=== PATIENT | male | born 1985 | race Caucasian/White ===

== ENCOUNTER 2025-05-26 11:18 | Emergency (ER) | payer OTHER, SELFPAY ==
[2025-05-26 11:21] VITALS: BP 118/69
[2025-05-26 12:07] LABS: Hematocrit 41.0 % (39.0-52.0); Hemoglobin 14.5 g/dL (13.0-18.0); Mean Corp Hgb Conc. 35.4 g/dL (33.0-37.0); Mean Corpuscular Volume 86.7 fL (80.0-94.0); Nucleated Red Blood Cells % 0 % (-); Platelet Count 271 10^3/uL (130-400); Red Cell Dist. Width 12.1 % (11.5-14.5)
[2025-05-26 12:11] LABS: Urine Character Clear (Clear)
[2025-05-26 12:26] LABS: ALT (SGPT) 12 U/L (0-50); AST (SGOT) 18 U/L (17-59); Albumin 4.5 g/dl (3.5-5.0); Alkaline Phosphatase 55 U/L (38-126); Blood Urea Nitrogen 12 mg/dl (9-20); Calcium 9.6 mg/dl (8.4-10.2); Carbon Dioxide 28 mmol/L (22-30); Chloride 105 mmol/L (98-107); Glucose 99 mg/dl (70-99); Potassium 4.1 mmol/L (3.5-5.1); Sodium 139 mmol/L (135-145); Total Protein 7.2 g/dl (6.3-8.2); eGFR > 60.00
--- NOTE | 2025-05-26 12:35 | ED.GENMED ---
History of Present Illness
General
Chief Complaint: Flank Pain
Source: patient
Exam Limitations: none
Time Seen by Provider: 05/26/25 11:36
Nursing documentation reviewed up to this point in time: agreed with
History of Present Illness
History of Present Illness:
39-year-old male with history of appendectomy, presents from urgent care for possible kidney stone. Reports waking up at around 5 AM with an urge to urinate but was unable to do so effectively despite frequent attempts. Has had to urinate
frequently.
At approximately 7:30 AM, the patient began experiencing severe right abdominal and flank pain, describing it as 8/10, which lasted for about 30 minutes. Laying down and sitting gave no relief. No fever or chills but he broke out in a sweat at
urgent care
The abdominal pain subsided completely around 8 AM, but the urination issues persisted. The patient reports frequent urges to urinate with minimal voiding each time, and no associated dysuria. At urgent care, a urinalysis indicated 'blood in my
urine.'
The patient denies any current abdominal pain, fever, chills, or nausea. Bowel movements have been normal, had BM this a.m.
Past History
Past History
ED Past Medical History: None
Social History
Tobacco: Non-smoker
Alcohol: Occasional
Personal: Single
Employment: Employed
Review of Systems
Review of Systems
Allergies reviewed?: Yes
All Other Systems: ROS reviewed and negative except as documented in HPI and ROS
Phy Exam
Physical Exam
Physical Exam:
GENERAL: No acute distress. A&Ox3.
CONSTITUTIONAL: Afebrile.
EYES: clear, conjunctivae normal
ENMT: moist mucus membranes
RESPIRATORY: Regular respirations, nonlabored, lungs clear.
CARDIOVASCULAR: Regular rate and rhythm, no murmurs, no rubs.
GI: Soft, nontender, normal BS
MUSCULOSKELETAL: Moves with ease. Well perfused.
SKIN: Warm, dry, pink
PSYCH: Normal mood and affect. Well kept, interactive and appropriate
NEUROLOGIC: Awake, alert and oriented. No focal neurological deficits
Course
Orders/Labs/Results
Orders:
Orders
05/26/25 11:43
CT Abd/pel Without Iv Or Oral Urgent
Comment:
Reason For Exam: R flank and abd pain
05/26/25 11:59
Complete Blood Count/With Diff Urgent
Comprehensive Metabolic Panel Urgent
Urinalysis Reflex To Culture Urgent
Date Specimen was Collected: 05/26/25
Time Specimen was Collected: 11:49
Urine Microscopic Reflex Cult Urgent
Urine Culture Urgent
KALA Source: U
Specimen Description:
Date Specimen was Collected: 05/26/25
Time Specimen was Collected: 11:49
05/26/25 13:14
CR Abdomen - 1 View Urgent
Comment:
Reason For Exam: track position of R ureteral stone
05/26/25 14:22
Tamsulosin [Flomax] 0.4 mg PO NOW STA
Abnormal Lab Results
05/26/25
11:59
Ur Occult Blood Reflex 4+ A
(Negative)
Leukocyte Esterase Rfl 1+ A
(Negative)
Urine RBC 16-20 A /HPF
(0-2)
Urine Bacteria (Reflex) Few A
(Negative)
Urine Albumin (Reflex) 1+ A
(Neg - Trace)
05/26/25 11:59
05/26/25 11:59
Vital Signs
Initial and Last Documented VS:
Initial Vital Signs
Temp Pulse Resp BP Pulse Ox
97.4 F 55 16 118/69 100
05/26/25 11:21 05/26/25 11:21 05/26/25 11:21 05/26/25 11:21 05/26/25 11:21
Last Documented Vital Signs
Temp Pulse Resp BP Pulse Ox
97.4 F 74 16 119/71 98
05/26/25 11:21 05/26/25 14:55 05/26/25 14:55 05/26/25 14:55 05/26/25 14:55
MDM/Problems Addressed
Differential Diagnosis Includes:
Kidney stone, UTI, pyelonephritis
MDM/Problems Addressed:
39-year-old male with history of appendectomy, presents from urgent care for possible kidney stone. Reports waking up at around 5 AM with an urge to urinate but was unable to do so effectively despite frequent attempts. Has had to urinate
frequently.
At approximately 7:30 AM, the patient began experiencing severe right abdominal and flank pain, describing it as 8/10, which lasted for about 30 minutes. Laying down and sitting gave no relief. No fever or chills but he broke out in a sweat at
urgent care
The abdominal pain subsided completely around 8 AM, but the urination issues persisted. The patient reports frequent urges to urinate with minimal voiding each time, and no associated dysuria. At urgent care, a urinalysis indicated 'blood in my
urine.'
The patient denies any current abdominal pain, fever, chills, or nausea. Bowel movements have been normal, had BM this a.m.
12:00 PM:
Patient remains comfortable
CBC normal
CMP normal
UA: 4+ blood, 1+ leukocyte Estrace, no WBCs.
12:50 PM: CT abdomen pelvis plain radiology report reviewed:
IMPRESSION:
6 mm distal right ureteral calculus with associated mild right hydroureteronephrosis.
Underdistended urinary bladder with questionable cystitis change.
Into reevaluate patient: Remains pain free.
Discussed results of CAT scan and patient given a copy.
No sign of infection, pain is completely gone, I will obtain a flatplate to see if the stone has passed or simply stuck
2:45 p.m.
Abd one view xray: 6 mm calculus in the right hemipelvis corresponding with distal right ureteral calculus seen on same-day CT. Right pelvic phlebolith noted afebrile,
Consulted Urology Dr. Jose. Agrees with Flomax, Ibuprofen q 6-8 hr, hydrocodone prn, Bactrim for prob cystitis
Pt notified of plan, all questions answered.
*Pulse Oximetry
SaO2: 100
Oxygen Mode of Delivery: Room air
Patient hypoxic: not evaluated
*Critical Care Note
Total Time (30-74mins, 75-104mins- exclusive of procedures): Not Applicable
ED Attending Note
-
Portions of this chart may have been created with voice recognition software.� Occasional wrong word or��sound alike� substitutions may have occurred due to the inherent limitations of voice recognition software.
Discharge Plan
Departure
Patient Disposition: Home (Routine Discharge)
Date of Disposition: 05/26/25
Time of Disposition: 14:32
Patient with high blood pressure during this ER visit?: No
Condition: Good
Discharge Problem:
Calculus of distal right ureter
Instructions: Kidney Stones (DC), How to Strain Your Urine, Narcotic Pain Medication
Prescriptions:
New
tamsulosin [Flomax] 0.4 mg capsule
0.4 mg PO DAILY Qty: 7 0RF
ibuprofen 600 mg tablet
600 mg PO Q8H Qty: 30 0RF
hydrocodone-acetaminophen 5-325 mg tablet
1 tab PO Q6H PRN (Reason: pain) Qty: 10 0RF
sulfamethoxazole-trimethoprim [Bactrim DS] 800-160 mg tablet
1 tab PO BID Qty: 10 0RF
Referrals:
Guero Jose MD [Active, Urology] - Next open appointment
NONE,* [Family Provider, Internal Medicine]
Activity Restrictions/Additional Instructions:
As we discussed, I spoke with the Urologist Dr. Jose, he wants you to take the Flomax daily and take Ibuprofen 600 mg (with food) every 6-8 hours while awake for the next few days. If you pass the stone, you may stop the Flomax and Ibuprofen.
Call his office in the morning and he will get you in some time this week.
Return here immediately for fever, chills, vomiting worsening pain unrelieved with the above medications or feeling sicker in any way.
Interventions
Interventions:
*Risk Screen - Suicide Last Done: 05/26/25 11:23
*General Assessment Last Done: 05/26/25 11:50
*Neglect/Abuse Screening Last Done: 05/26/25 11:23
*ED- Fall Risk Assessment Last Done: 05/26/25 11:50
*ED COVID-19 Vaccine History Last Done: 05/26/25 11:50
*Nursing Disposition Last Done: 05/26/25 14:55
JE-Demjmp-Ykuwkrukpn Assessment Last Done: 05/26/25 11:50
ED-Male Genitourinary Assessment Last Done: 05/26/25 11:50
Discharge Date and Time
Discharge Date/Time: 05/26/25 14:56
Print Language: MONGOLIAN
[2025-05-26 12:51] LABS: Urine Red Blood Cell 16-20 /HPF (0-2); Urine Squamous Cell 0-2 /LPF (Few)
[2025-05-26] MEDS: FLOMAX 0.4 MG PO (14:48)
[2025-05-26 14:55] VITALS: BP 119/71
== END 2025-05-26 14:56 | disposition home or self-care (01) ==
LOC: EMR 11:18
PROVIDERS: Registered Nurse; EMERGENCY PHYSICIAN Student in an Organized Health Care Education/Training Program
DX: N13.2 Hydronephrosis with renal and ureteral calculous obstruction (principal); I87.8 Other specified disorders of veins
CPT/HCPCS: 99284; 74018; 74176; 80053; 81003; 81015; 85025; 87086

== ENCOUNTER 2025-06-10 10:22 | Observation (INO) | payer OTHER, SELFPAY ==
[2025-06-10] VITALS (13 sets, daily range): BP systolic 107–170; BP diastolic 58–110; BMI 25.3
--- NOTE | 2025-06-10 02:45 | EDRN ---
Last night before bed pt felt he had to urinate a lot. Pt had a headache, went to sleep. Pt woke at 0030 to go to the bathroom and after he went, still felt he had to go. 15 minutes later he felt pain on R abdomen that is now constant. Pt took 1
hydrocodone and 600mg motrin around [id number]. Pt stopped taking flomax for a week and restarted it yesterday. Pt saw urology since last visit to ED and was told he would not be able to pass the stone so he has surgery scheduled for 06/20. No n/v,
fever/chills/cough, blood in urine, burning with urination. Pt's R back also hurts.
[2025-06-10 03:05] LABS: Hematocrit 42.9 % (39.0-52.0); Hemoglobin 15.1 g/dL (13.0-18.0); Mean Corp Hgb Conc. 35.2 g/dL (33.0-37.0); Mean Corpuscular Volume 86.7 fL (80.0-94.0); Nucleated Red Blood Cells % 0 % (-); Platelet Count 321 10^3/uL (130-400); Red Cell Dist. Width 12.1 % (11.5-14.5)
--- NOTE | 2025-06-10 03:06 | EDRN ---
Debra HICKS gave vo for COMP to be sent which was done. Then Dr Berg put in a BMP. Per Dr Berg, run what is down in the lab. This RN cancelled the BMP, Dr Berg then cancelled the COMP. This RN called lab and informed the COMP is running now
and will be resulted despite the cancellation order.
[2025-06-10] MEDS: DILAUDID 0.5 MG IV ×3 (03:12→09:21)
[2025-06-10] MEDS: NSS 500 IV (03:12)
--- NOTE | 2025-06-10 03:27 | EDRN ---
Pt has been walking around the room in and out of the bathroom without being able to urinate. Dilaudid has eased the pain to 7/10. Pt comfortable enough that he laid down on the stretcher. Blankets within reach.
[2025-06-10 03:28] LABS: ALT (SGPT) 15 U/L (0-50); AST (SGOT) 20 U/L (17-59); Albumin 4.9 g/dl (3.5-5.0); Alkaline Phosphatase 59 U/L (38-126); Blood Urea Nitrogen 17 mg/dl (9-20); Calcium 10.0 mg/dl (8.4-10.2); Carbon Dioxide 29 mmol/L (22-30); Chloride 102 mmol/L (98-107); Estimated Creatinine Clearance 112 ml/min; Glucose 120 mg/dl (70-99); Potassium 3.8 mmol/L (3.5-5.1); Sodium 140 mmol/L (135-145); Total Protein 7.8 g/dl (6.3-8.2); eGFR > 60.00
[2025-06-10] MEDS: TORADOL 30 MG IV (03:47)
--- NOTE | 2025-06-10 03:57 | ED.GENMED ---
History of Present Illness
<Alycia Ashraf PA-C - Last Filed: 06/10/25 06:08>
General
Chief Complaint: Flank Pain
Source: patient
Exam Limitations: none
Time Seen by Provider: 06/10/25 02:48
Nursing documentation reviewed up to this point in time: agreed with
History of Present Illness
History of Present Illness:
39-year-old male with past medical history renal stones, ADHD, presents to the ER today with concerns of right flank pain radiating to the groin for the past 3 hours. Patient reports that he was seen in our emergency department on 05/26/2025 for a
renal stone, at the time he was found to have a 6 mm distal right ureteral calculus with associated hydronephrosis. He was advised to follow-up with urology. He called Dr. Jose's office and had scheduled a stone retrieval with him on June 20
should the stone not pass. Patient remained pain-free after that emergency department visit for 2 weeks until early this morning when pain woke him up from sleep. He has no associated fevers or chills. No associated nausea or vomiting, does note
urinary frequency and urgency but no associated burning with urination, no hematuria. He denies any sick contacts.
Past History
<Alycia Ashraf PA-C - Last Filed: 06/10/25 06:08>
Past History
ED Past Medical History: None
Social History
Tobacco: Non-smoker
Alcohol: Occasional
Personal: Single
Employment: Employed
Review of Systems
<Alycia Ashraf PA-C - Last Filed: 06/10/25 06:08>
Review of Systems
All Other Systems: ROS reviewed and negative except as documented in HPI and ROS
Phy Exam
<JAMI Dan Last Filed: 06/10/25 06:08>
General Physical Exam
General Presentation: well appearing and no apparent distress
General age: appears stated age
General Skin: warm and dry
General Habitus: normal
General Mental: alert
General Hydration: appears well hydrated
ENT Exam
ENT Exam: EOMI and TM's normal
Eye Exam
Eye Exam: PERRL and EOMI
Cardiovascular Exam
Cardiovascular Exam: regular rate/rhythm and no murmur
Pulmonary Exam
Pulmonary Exam: lungs clear and no respiratory distress
Gastrointestinal Exam
Gastrointestinal Exam: soft and non distended
Palpation: left upper quadrant: No tenderness, left lower quadrant: No tenderness, right upper quadrant: No tenderness and right lower quadrant: Minimal tenderness (right sided cva tenderness)
Neurological Exam
Neurological Exam: alert, oriented x3 and CN II-XII intact
Musculoskeletal Exam
Musculoskeletal Exam: other (no midline spinal tenderness)
Skin Exam
Skin Exam: normal color and warm/dry
Psychiatric Exam
Psychiatric Exam: normal mood/affect
Sepsis
<Alycia Ashraf PA-C - Last Filed: 06/10/25 06:08>
Sepsis Screening
Sepsis Assessment: Sepsis Ruled Out
Sepsis Screen
Sepsis Screen: Sepsis Ruled Out
Date: 06/10/25
Time: 06:05
<Ronda Berg DO - Last Filed: 06/10/25 06:14>
Sepsis Screen
Sepsis Screen: Sepsis Ruled Out
Date: 06/10/25
Time: 06:11
Course
<lAycia Ashraf PA-C - Last Filed: 06/10/25 06:08>
Orders/Labs/Results
Orders:
Orders
06/10/25 02:57
Abdomen Xray - 1 View [CR Abdomen - 1 View] Urgent
Comment:
Reason For Exam: Distal R ureteral stone-flank pain
06/10/25 02:58
Basic Metabolic Panel Urgent
Complete Blood Count/With Diff Urgent
Comprehensive Metabolic Panel Urgent
06/10/25 03:02
0.9% Sodium Chloride 500 ml [Nss] 500 ml IV BOLUS
HYDROmorphone [Dilaudid] 0.5 mg IV NOW STA
06/10/25 03:44
Ketorolac [Toradol] 30 mg IV NOW STA
06/10/25 03:49
US Renal With Bladder Urgent
Comment:
Reason For Exam: right flank pain
06/10/25 04:46
HYDROmorphone [Dilaudid] 0.5 mg IV NOW STA
06/10/25 05:27
0.9% Sodium Chloride 1000 ml [Nss] 1,000 ml IV 100 mls/hr
06/10/25 Breakfast
NPO
Allow oral meds: No
Allow clear liquids: No
NPO with Ice Chips: No
Abnormal Lab Results
06/10/25
02:58
Glucose 120 H mg/dl
(70-99)
06/10/25 02:58
06/10/25 02:58
Vital Signs
Initial and Last Documented VS:
Initial Vital Signs
Temp Pulse Resp BP Pulse Ox
98.8 F 54 24 170/110 100
06/10/25 02:27 06/10/25 02:27 06/10/25 02:27 06/10/25 02:27 06/10/25 02:27
Last Documented Vital Signs
Temp Pulse Resp BP Pulse Ox
98.8 F 55 14 127/85 97
06/10/25 02:27 06/10/25 04:58 06/10/25 04:58 06/10/25 04:58 06/10/25 04:58
<Ronda Berg, DO - Last Filed: 06/10/25 06:14>
Orders/Labs/Results
Orders:
Orders
06/10/25 02:57
Abdomen Xray - 1 View [CR Abdomen - 1 View] Urgent
Comment:
Reason For Exam: Distal R ureteral stone-flank pain
06/10/25 02:58
Basic Metabolic Panel Urgent
Complete Blood Count/With Diff Urgent
Comprehensive Metabolic Panel Urgent
06/10/25 03:02
0.9% Sodium Chloride 500 ml [Nss] 500 ml IV BOLUS
HYDROmorphone [Dilaudid] 0.5 mg IV NOW STA
06/10/25 03:44
Ketorolac [Toradol] 30 mg IV NOW STA
06/10/25 03:49
US Renal With Bladder Urgent
Comment:
Reason For Exam: right flank pain
06/10/25 04:46
HYDROmorphone [Dilaudid] 0.5 mg IV NOW STA
06/10/25 05:27
0.9% Sodium Chloride 1000 ml [Nss] 1,000 ml IV 100 mls/hr
06/10/25 Breakfast
NPO
Allow oral meds: No
Allow clear liquids: No
NPO with Ice Chips: No
Abnormal Lab Results
06/10/25
02:58
Glucose 120 H mg/dl
(70-99)
06/10/25 02:58
06/10/25 02:58
Vital Signs
Initial and Last Documented VS:
Initial Vital Signs
Temp Pulse Resp BP Pulse Ox
98.8 F 54 24 170/110 100
06/10/25 02:27 06/10/25 02:27 06/10/25 02:27 06/10/25 02:27 06/10/25 02:27
Last Documented Vital Signs
Temp Pulse Resp BP Pulse Ox
98.8 F 55 14 127/85 97
06/10/25 02:27 06/10/25 04:58 06/10/25 04:58 06/10/25 04:58 06/10/25 04:58
<Alycia Ashraf PA-C - Last Filed: 06/10/25 06:08>
MDM/Problems Addressed
Differential Diagnosis Includes:
ddx include renal stone, pyelonephritis, acute cystitis, musculoskeletal sprain/strain
MDM/Problems Addressed:
39-year-old male with past medical history renal stones, ADHD, presents to the ER today with concerns of right flank pain radiating to the groin for the past 3 hours. Patient reports that he was seen in our emergency department on 05/26/2025 for a
renal stone, at the time he was found to have a 6 mm distal right ureteral calculus with associated hydronephrosis. The pain he experiences now feels fever similar to the pain he had 2 weeks ago associated with the stone. He has had no associated
urinary symptoms, no fevers or chills. Will obtain KUB to assess for stone location, will initiate IV fluids and pain management. Will obtain ultrasound to assess for hydronephrosis.
Labs reviewed, no leukocytosis noted, renal function normal. X-ray unclear if phlebolith versus stone. Ultrasound shows mild right hydronephrosis with no visualized ureteral jet. Case reviewed with Dr. Santana, will continue IV fluids keep n.p.o.
will admit to urology service.
Chronic conditions affecting care:
n/a
<Alycia Ashraf PA-C - Last Filed: 06/10/25 06:08>
*Pulse Oximetry
SaO2: 100
Oxygen Mode of Delivery: Room air
Patient hypoxic: no
*Critical Care Note
Total Time (30-74mins, 75-104mins- exclusive of procedures): Not Applicable
Data Reviewed
Review of Other/Old Records Reveals: Records
ED Attending Note
<Alycia Ashraf PA-C - Last Filed: 06/10/25 06:08>
-
Portions of this chart may have been created with voice recognition software.� Occasional wrong word or��sound alike� substitutions may have occurred due to the inherent limitations of voice recognition software.
<Ronda Berg DO - Last Filed: 06/10/25 06:14>
ED Attending Note
Patient seen and examined by attending physician: Yes
I performed a history and physical exam of patient and discussed management with resident, I reviewed resident's note and agree with documented findings and plan of care.: Yes
ED Attending Note:
39-year-old male with recent diagnosis of kidney stones, was evaluated in this ED 2 weeks ago with complaints of acute right flank to right lower quadrant pain. Diagnosed with 6 mm stone distal right ureter with mild hydronephrosis on CT. Was
pain-free during that ED visit and remained pain-free over the past 2 weeks until return of moderate to severe right flank pain radiating to his right lower quadrant last night, unrelieved with a dose of Vicodin as well as ibuprofen. Since ED visit
2 weeks ago he has followed up with urology and was scheduled for ureteroscopy, stone removal next week. He has not had a fever nor chills. No dysuria no urgency no hematuria.
Prior to 2 weeks ago, no previous history of kidney stones.
Patient has had mild to moderate but only temporary relief of pain after IV Dilaudid and Toradol. Has required repeated doses of IV pain medication.
He remains afebrile. Moderately hypertensive initially, hypertension has resolved with pain management.
KUB film shows right pelvic phlebolith but no definitive ureteric stone as noted on previous KUB film. Thus renal ultrasound obtained which shows mild hydronephrosis. Absence of ureteral jet on the right. No stone noted at UVJ on ultrasound.
Labs are reassuring with normal white blood cell count, normal renal function.
Due to persistent/recurrent renal colic case discussed with urology.
Will admit to urology service. Will keep NPO. IV fluids and will continue pain medication as needed.
Discharge Plan
Departure
Patient Disposition: Admit
Date of Disposition: 06/10/25
Time of Disposition: 05:51
Admit to doctor: Dr. Santana
Presentation/result/management discussed w/ accepting MD/DO: Dr. Santana, urology
Patient with high blood pressure during this ER visit?: Yes
Condition: Fair
Discharge Problem:
Calculus of right ureter
Prescriptions:
No Action
tamsulosin [Flomax] 0.4 mg capsule
0.4 mg PO DAILY Qty: 7 0RF
ibuprofen 600 mg tablet
600 mg PO Q8H Qty: 30 0RF
hydrocodone-acetaminophen 5-325 mg tablet
1 tab PO Q6H PRN (Reason: pain) Qty: 10 0RF
sulfamethoxazole-trimethoprim [Bactrim DS] 800-160 mg tablet
1 tab PO BID Qty: 10 0RF
dextroamphetamine-amphetamine [Adderall] 10 mg Tablet
10 mg PO DAILY
Referrals:
NONE,* [Family Provider, Internal Medicine]
Interventions
Interventions:
*Risk Screen - Suicide Last Done: 06/10/25 02:27
*General Assessment Last Done: 06/10/25 02:43
*Neglect/Abuse Screening Last Done: 06/10/25 02:27
*ED- Fall Risk Assessment Last Done: 06/10/25 03:00
*ED COVID-19 Vaccine History Last Done: 06/10/25 02:43
*ED Influenza Vaccine History Last Done: 06/10/25 02:43
ZA-Omdmtp-Qzmtjzuhzm Assessment Last Done: 06/10/25 03:00
ED-Male Genitourinary Assessment Last Done: 06/10/25 03:00
Discharge Date and Time
Print Language: YAKUT
--- NOTE | 2025-06-10 04:04 | EDRN ---
US tech called in, per Dr Berg pt was instructed to not urinate prior to US - pt updated
[2025-06-10] MEDS: NSS 1000 IV (05:35)
--- NOTE | 2025-06-10 08:48 | HP.FOC2 ---
Focused History & Physical
Chief Complaint
HPI:
Chief Complaint: R ureteral stone
HPI / Indication for Planned Procedure: Known R distal stone who came to ER due to intractable pain
No evidence of systemic infection, no fevers/chills at home
Relevant Past Medical History: Negative
Relevant Social History: Negative
Relevant Family History: Negative
Relevant Past Surgical History: Negative
Review of Systems
Review of Pertinent Systems: All Systems Negative
Medication
See Medication form for detailed medications: Yes
Medication List (including Herbals & OTC):
tamsulosin 0.4 mg capsule (Flomax) 0.4 mg PO DAILY #7 caps 05/26/25
dextroamphetamine-amphetamine 10 mg tablet (Adderall) 10 mg PO DAILY 06/10/25
hydrocodone 5 mg-acetaminophen 325 mg tablet 1 tab PO Q6HPRN PRN severe pain 06/10/25
ibuprofen 600 mg tablet 600 mg PO Q8HPRN PRN mild pain 06/10/25
Medications Reviewed: Yes
Allergies and Reactions
Patient has Allergies: No
Noted Allergies and Reactions:
Allergy/AdvReac Type Severity Reaction Status Date / Time
No Known Allergies Allergy Verified 06/10/25 02:31
Pertinent Physical Exam
All Other Systems: Negative
Lungs: Normal
Heart: Normal
Extremities: Normal
Diagnosis / Assessment
39M with intractable pain from R distal ureteral stone
Plan / Procedure
- Obtain urinalysis
- IV/PO pain control
- Strain urine
- Abx prophylaxis - ceftriaxone
- OR today for ureteroscopy
Anesthesia/Sedation to be done by Anesthesia Provider: Yes
[2025-06-10] MEDS: TORADOL 15 MG IV (09:21)
[2025-06-10 09:49] LABS: Urine Character Slightly Cloudy (Clear)
[2025-06-10 09:55] LABS: Urine Squamous Cell 0-2 /LPF (Few)
[2025-06-10 09:58] LABS: Urine Red Blood Cell 26-30 /HPF (0-2)
--- NOTE | 2025-06-10 11:08 | CM ---
CM met with pt and SO bedside
They reside in a bilevel home with 6 [address] and 6 steps up to main living area/sleeping floor
Pt is independent with his ADLs, drives+
Has a cpap at home which he has never utilized
Denies financial insecurities, Rx coverage
PCP- none, typically goes to urgent care, has new PCP appt scheduled
Rx- [facility]
Pt planned for OR today for ureteroscopy with stent
Pt admitted under OBS- OBS form reviewed and copy provided
OBS form placed on chart in ED
Discharge Disposition- anticipate home no needs
--- NOTE | 2025-06-10 13:59 | W.SUR.PREOP ---
Pre-Operative Surgical Note
-
I have examined this patient prior to the performance of the scheduled procedure.
The patient's condition is unchanged from the time of the current History and
Physical and the patient is able to undergo the scheduled procedure.
Intractable right renal colic from known distal right ureteral stone.
To OR for R ULS.
Informed consent signed in preop holding.
R laterality marked in preop holding.
--- NOTE | 2025-06-10 14:56 | W.IMMPOSTOP ---
Surgical Immed Post Op Note
-
Primary Surgeon: Rebeca
Pre-op Diagnosis: Obstructing distal right ureteral stone, non-obstructing right renal stone
Post-op Diagnosis: Same, pin-point right ureteral orifice, distal right ureteral stenosis, J-hooking of distal right ureter
Procedure Performed: cystoscopy, right URS (distal ureter), RGP, stent insertion
Anesthesia Type: LMA
Specimen / Cultures: None/None
Estimated Blood Loss: Negligible
Drains: 4.7Fr x 26 cm JJ right stent
Complications: None
Operative Findings: pinpoint right UO, distal right ureteral stenosis w/ inability to pass multiple guidewires beyond impacted stone (hydrophilic, Soloflex), J-hooking of ureter requiring direct visualization of true ureteral lumen to navigate
guidewire beyond stenosis.
Radiopaque 6 mm distal right ureteral stone noted on KUB.
Final KUB w/ proximal curl in right renal pelvis and distal curl in bladder.
--- NOTE | 2025-06-10 15:01 | W.DS.TRANS ---
DC Summary - Land Survey Technician
-
Discharge Instructions:
Discharge Diagnosis/Procedures obstructing distal right ureteral stone +
ureteral stenosis s/p right stent placement
Diet Regular
Activity No restrictions
Driving Restrictions No driving for 24 hours
Bathing Restrictions None
Blood Work not applicable
Wound Care not applicable
Instructions:
Stand-Alone Forms:
Changes to Home Medications: No
Discharge Medications:
DC Medications w/original date entered in [facility]
tamsulosin 0.4 mg capsule (Flomax) 0.4 mg PO DAILY #7 caps 05/26/25
dextroamphetamine-amphetamine 10 mg tablet (Adderall) 10 mg PO DAILY 06/10/25
hydrocodone 5 mg-acetaminophen 325 mg tablet 1 tab PO Q6HPRN PRN severe pain 06/10/25
ibuprofen 600 mg tablet 600 mg PO Q8HPRN PRN mild pain 06/10/25
Home Medication Changes
Pending Results: No
Total time spent discharging patient (in min): 45
[2025-06-10] MEDS: DETROL LA 4 MG PO (16:01)
== END 2025-06-10 17:39 | disposition home or self-care (01) ==
LOC: PACUI 10:22
PROVIDERS: Physician Assistant; ADMITTING PHYSICIAN Urology; EMERGENCY PHYSICIAN Emergency Medicine
DX: N13.2 Hydronephrosis with renal and ureteral calculous obstruction (principal); R10.9 Unspecified abdominal pain; F90.9 Attention-deficit hyperactivity disorder, unspecified type; R10.31 Right lower quadrant pain; Z87.442 Personal history of urinary calculi
CPT/HCPCS: 52332; 74018; 74420; 76000; 76770; 80053; 81003; 81015; 85025; 96361; 96374; 96375; 96376; 99285; A4300; C1894; C2617; G0378